=== PATIENT | male | born 1995 | race Caucasian/White ===

== ENCOUNTER 2020-01-18 19:22 | Emergency (ER) | payer OTHER, BC, SELFPAY ==
--- NOTE | 2020-01-18 19:28 | ED.GENADULT ---
HPI - General Adult General Chief complaint: Urogenital-Male Stated complaint: uti Time Seen by Provider: 01/18/20 19:28 Source: patient Mode of arrival: ambulatory Limitations: no limitations History of Present Illness HPI narrative: 24-year-old male patient presents to the [facility] with complaints of urinary symptoms for the past week. Patient states he has had some lower abdominal pain, discomfort when he urinates that radiates to the testicles. Denies any fevers, nausea vomiting or diarrhea. Denies any penile discharge. Patient states he had a UTI when he was very young but denies any history of UTIs. Patient states that he is sexually active with women but states he only has one partner. Patient states that his partner was tested for her Pap smear as well as STD testing and she was negative for everything. Related Data Allergies Allergy/AdvReac Type Severity Reaction Status Date / Time No Known Allergies Allergy Unverified 09/30/14 19:35 Review of Systems Review of Systems: Narrative: CONSTITUTIONAL: Denies fever, chills, or sweats. EYES: Denies visual changes, redness, or discharge. ENT: Denies rhinorrhea, congestion, sore throat, or otalgia. CARDIOVASCULAR: Denies chest pain, palpitations, or edema. RESPIRATORY: Denies cough or dyspnea. GASTROINTESTINAL: Positive lower abdominal pain, denies nausea, vomiting, or diarrhea. GENITOURINARY: Positive dysuria, denies hematuria. SKIN: Denies rash or itching. MUSCULOSKELETAL: Denies back pain, joint pain, or myalgia. NEUROLOGIC: Denies headache, numbness, or weakness. PSYCHIATRIC: Denies anxiety or depression. PMFSH Comments At the time of my signature I agree with nursing past medical history, surgical, social, and family history. There is no relevant family history pertinent to the presenting complaint. Exam Narrative: Exam Narrative: GENERAL: Well-appearing, well-nourished, and in no acute distress. HEAD: Normocephalic, atraumatic. EYES: PERRLA and EOMI. ENT: Nares clear, no rhinorrhea or epistaxis. Mucous membranes moist. NECK: Supple. No lymphadenopathy CHEST: Clear to auscultation. No respiratory distress. HEART: Regular rate and rhythm. No murmur heard. Normal peripheral pulses. ABDOMEN: Soft, nontender, nondistended, normal active bowel sounds. No CVA tenderness on percussion EXTREMITIES: Normal range of motion. No edema. SKIN: Warm, dry, no rash. NEURO: No focal deficits. Alert and oriented x3. Course Vital Signs Vital signs: Vital Signs Temperature 36.8 C 01/18/20 19:36 Pulse Rate 74 01/18/20 19:36 Respiratory Rate 20 01/18/20 19:36 Blood Pressure 141/74 H 01/18/20 19:36 Pulse Oximetry 100 01/18/20 19:36 Temperature 36.8 C 01/18/20 19:36 Pulse Rate 74 01/18/20 19:36 Respiratory Rate 20 01/18/20 19:36 Blood Pressure 141/74 H 01/18/20 19:36 Pulse Oximetry 100 01/18/20 19:36 Vital signs reviewed. The patient has been informed that they may have pre-hypertension or Hypertension based on a BP reading in the department. I recommend that the patient call the primary care provider listed on their discharge instructions or a physician of their choice this week to arrange follow up for further evaluation of possible pre-hypertension or Hypertension Medical Decision Making Differential Diagnosis Differential Diagnosis: Differential diagnosis: Uncomplicated lower UTI, uncomplicated UTI, polynephritis, penile trauma,balanoposthitis, phimosis, paraphimosis, testicular torsion, epididymitis, prostatitis, varicocele, spermatocele, hydrocele, hernia. Gonorrhea, chlamydia, Trichomonas, bacterial vaginosis, herpes, HIV, yeast infection, urinary tract infection. They care for patient is to go ahead and collect a urine sample and dip the urine. Discussed with him that we will most likely also send the urine off for testing of trichomonas, gonorrhea and chlamydia. Discussed with him that UTIs typically in people his age are extremely ra
[2020-01-18 19:36] VITALS: BP 141/74; PULSE 74; RESP 20; TEMP 36.8; O2SAT 100
[2020-01-18] MEDS: AZITHROMYCIN 250 MG TABLET 1000 MG PO (19:49)
[2020-01-18] MEDS: LIDOCAINE HCL 1% LOCAL INJ 20 ML VIAL IM (19:51)
[2020-01-18] MEDS: cefTRIAXone 250 MG VIAL IM (19:51)
== END 2020-01-18 20:09 | disposition home or self-care (01) ==
PROVIDERS: Emergency Provider Nurse Practitioner Family; PCP Internal Medicine Infectious Disease
DX: Z20.2 Contact with and (suspected) exposure to infections with a predominantly sexual mode of transmission (principal); R30.0 Dysuria
CPT/HCPCS: 81003; 87086; 87491; 87591; 87661; 96372; 99213; A9270; G0463; J0696